=== PATIENT | female | born 1945 | race Caucasian/White ===

== ENCOUNTER 2020-12-12 03:59 | Emergency (ER) | payer BC ==
[~2020-12-12] VITALS: Ht 157.5 cm; Wt 49.9 kg
[2020-12-12] MEDS ORDERED: IBUPROFEN 400 MG TABLET ONE (04:26)
[2020-12-12] MEDS ORDERED: IBUPROFEN 400 MG TABLET PO ONE (04:30)
--- NOTE | 2020-12-12 04:34 | NUR ---
PATIENT BIBSELF FOR RIGHT SIDED BACK PAIN FROM TRIP AND FALL ON THE SIDEWALK ON MONDAY. PATIENT DENIES ANY INJUIRES, DENIES KO, STATES SHE JUST WANTS TO GET CHECKED. PATIENT IS A/OX 4, RR EVEN AND UNLABORED. WILL CONTIUNE TO MONITOR.
--- NOTE | 2020-12-12 04:40 | NUR ---
XRAY AT BEDSIDE
[2020-12-12] MEDS ORDERED: IBUP-1957 PO (05:18)
--- NOTE | 2020-12-12 05:24 | NUR ---
Patient discharged to home in stable condition. Rx and Written and verbal after care instructions given. Patient verbalizes understanding of instruction. ambulatory with a steady gait
[2020-12-12 05:25] VITALS: BP 159/89
== END 2020-12-12 05:25 | disposition home or self-care (01) ==
LOC: ER 03:59
DX: S29.012A Strain of muscle and tendon of back wall of thorax, initial encounter (principal); W01.0XXA Fall on same level from slipping, tripping and stumbling without subsequent striking against object, initial encounter; Y93.01 Activity, walking, marching and hiking; Y92.89 Other specified places as the place of occurrence of the external cause; Y99.8 Other external cause status
CPT/HCPCS: 72074-TC

== ENCOUNTER 2021-05-07 11:36 | Emergency (ER) | payer BC ==
[~2021-05-07] VITALS: Ht 157.5 cm; Wt 49.9 kg
[~2021-05-07 11:36] MED LIST: IBUP-1957 PO
[2021-05-07 11:46] VITALS: BP 136/80
--- NOTE | 2021-05-07 12:07 | NUR ---
Patient discharged to home in stable condition. Written and verbal after care instructions given. Patient verbalizes understanding of instruction.
== END 2021-05-07 12:07 | disposition home or self-care (01) ==
LOC: ER 11:58
DX: J84.9 Interstitial pulmonary disease, unspecified (principal)